=== PATIENT | female | born 1980 | race Caucasian/White ===

== ENCOUNTER 2021-07-22 20:46 | Emergency (ER) | payer OTHER ==
[2021-07-22 21:48] LABS: BASOPHIL 0.5 % (0-2); EOSINOPHIL 2.8 % (0-5); HGB 11.8 g/dl (12.5-16.0); LYMPHOCYTE 14.6 % (15-48); MCH 30.3 pg (25.0-31.0); MCHC 32.8 g/dL (32.0-36.0); MCV 92.3 fL (78.0-100.0); MONOCYTE 7.1 % (0-12); NEUTROPHIL 74.6 % (41-80); NRBC 0; PLT 257 K/uL (150-400); RDW 13.7 % (11.5-14.0); WBC 11.2 K/uL (4.0-10.5)
[2021-07-22 22:04] LABS: CREATININE 0.61 mg/dL (0.51-0.95); POTASSIUM 3.1 mmol/L (3.5-5.1)
[2021-07-22] MEDS ORDERED: AMOX TR-K CLV1 EAC4 PO (22:49)
== END 2021-07-22 23:15 | disposition home or self-care (01) ==
LOC: FER 20:46
PROVIDERS: Nurse Practitioner Family
DX: J01.90 Acute sinusitis, unspecified (principal); E87.6 Hypokalemia; Z88.0 Allergy status to penicillin; Z88.5 Allergy status to narcotic agent; Z88.6 Allergy status to analgesic agent
CPT/HCPCS: 36415; 70450; 80048; 85025; J1100; J1885; J2405; J7030

== ENCOUNTER 2021-11-01 06:06 | Emergency (ER) | payer OTHER ==
[~2021-11-01 06:06] MED LIST: AMOX TR-K CLV1 EAC4 PO
[2021-11-01 06:39] LABS: BASOPHIL 0.2 % (0-2); EOSINOPHIL 0 % (0-5); LYMPHOCYTE 10.9 % (15-48); MCH 30.5 pg (25.0-31.0); MCHC 33.3 g/dL (32.0-36.0); MCV 91.4 fL (78.0-100.0); MONOCYTE 16.9 % (0-12); MPV 9.9 fL (6.0-9.5); NEUTROPHIL 71.6 % (41-80); NRBC 0; PLT 261 K/uL (150-400); RBC 3.94 M/uL (4.20-5.40)
[2021-11-01 07:15] LABS: ALBUMIN 3.6 g/dL (3.4-5.0); BILIRUBIN - TOTAL 0.3 mg/dL (0.2-1.0); BUN/CREAT RATIO (CALC) 12.2 RATIO; CREATININE 0.82 mg/dL (0.51-0.95); GLOBULIN (CALCULATION) 4.1 g/dL; POTASSIUM 3.7 mmol/L (3.5-5.1); TOTAL PROTEIN 7.7 g/dL (6.4-8.2)
[2021-11-01 08:17] LABS: INFLUENZA A NAA NEGATIVE (NEGATIVE)
[2021-11-01 08:23] LABS: CORONAVIRUS 2019 SARS-COV-2 POSITIVE (NEGATIVE)
[2021-11-01] MEDS ORDERED: NAPROXEN500 MG PO (08:41)
[2021-11-01] MEDS ORDERED: MEDROL 4MG DOSEP4 MG PO (08:41)
[2021-11-01 08:43] LABS: BILIRUBIN NEGATIVE (NEGATIVE); BLOOD TRACE-INTACT Ery/uL (NEGATIVE); CLARITY CLEAR (CLEAR); COLOR YELLOW (YELLOW); GLUCOSE (U) NORMAL (NORMAL); LEUKOCYTES NEGATIVE Leu/uL (NEGATIVE); NITRITE NEGATIVE (NEGATIVE); PROTEIN NEGATIVE (NEGATIVE); SPECIFIC GRAVITY <=1.005 (1.001-1.030); UROBILINOGEN 0.2 mg/dL (0.2-1.0)
[2021-11-01 08:45] LABS: AMPHETAMINES NEGATIVE (NEGATIVE); BARBITURATES NEGATIVE (NEGATIVE); ECSTASY (MDMA) NEGATIVE (NEGATIVE); MARIJUANA (THC) NEGATIVE (NEGATIVE); METHADONE NEGATIVE (NEGATIVE); OPIATES NEGATIVE (NEGATIVE); OXYCODONE NEGATIVE (NEGATIVE)
[2021-11-01 08:52] LABS: BACTERIA TRACE
[2021-11-01 08:53] LABS: SQUAMOUS EPITHELIAL CELLS 20-50
== END 2021-11-01 08:52 | disposition home or self-care (01) ==
LOC: FER 06:06
PROVIDERS: Emergency Medicine
DX: U07.1 COVID-19 (principal); Z88.5 Allergy status to narcotic agent; Z88.6 Allergy status to analgesic agent; Z88.8 Allergy status to other drugs, medicaments and biological substances
CPT/HCPCS: 36415; 80053; 80305; 81001; 82150; 83690; 85025; 87880; J1100; J1885; J2405; J7030; U0002